=== PATIENT | male | born 1975 | race Caucasian/White ===

== ENCOUNTER 2017-06-24 20:31 | Emergency (ER) | payer OTHER ==
[2017-06-24 21:02] VITALS: BP 135/74; PULSE 66; TEMP 98; BMI 33.0
--- NOTE | 2017-06-24 21:04 | PDOC ---
Rapid Medical Evaluation Time Seen by Provider: 06/24/17 20:55 Medical Evaluation: Allergies Allergy/AdvReac Type Severity Reaction Status Date / Time No Known Allergies Allergy Verified 12/18/14 11:16 06/24/17 20:56 I have performed a brief in-person person evaluation of the patient. The patient presents with a chief complaint of sorethroat x this am. Reports difficulty swallowing since this am states it became worse throughout the day. Also reports headache and malaise. Pertinent physical exam findings: NAD HEENT: + enlarged tonsils, + exudate, multiple caries, and poor dentition unlabored breathing lungs clear bilateral heart s1s2 I have ordered the following: rapid strep sent The patient will proceed to the ED for further evaluation.
--- NOTE | 2017-06-24 21:39 | PDOC ---
History of Present Illness - General Chief Complaint: Sore Throat Stated Complaint: PAIN Time Seen by Provider: 06/24/17 20:55 History Source: Patient Exam Limitations: No Limitations - History of Present Illness Initial Comments: 06/24/17 22:21 Best Contact: Pmhx: N/A Pshx: N/A Allergies: NKDA 42-year-old male presents to the emergency department complaining of right- sided sore throat since yesterday afternoon. Patient denies fever, chills, nausea/vomiting, facial pain, nasal congestion, rhinorrhea, earaches, cough, chest pain, shortness of breath, abdominal pains. Patient denies taking any medication for pain. Past History - Past Medical History Allergies/Adverse Reactions: Allergies Allergy/AdvReac Type Severity Reaction Status Date / Time No Known Allergies Allergy Verified 06/24/17 20:59 Home Medications: Ambulatory Orders Amoxicillin - [Amoxicillin 500mg Capsule -] 500 mg PO BID #20 capsule 06/24/17 COPD: No Other medical history: Pt denies - Suicide/Smoking/Psychosocial Hx Smoking History: Current every day smoker Have you smoked in the past 12 months: Yes Number of Cigarettes Smoked Daily: 10 Information on smoking cessation initiated: No Hx Alcohol Use: No Drug/Substance Use Hx: No Substance Use Type: None Review of Systems - Review of Systems Able to Perform ROS?: Yes Comments:: 06/24/17 22:16 CONSTITUTIONAL: Absent: fever, chills, diaphoresis, generalized weakness, malaise, loss of appetite HEENT: +throat pain Absent: rhinorrhea, nasal congestion, throat swelling, difficulty swallowing, mouth swelling, ear pain, eye pain, visual Changes CARDIOVASCULAR: Absent: chest pain, loss of consciousness, palpitations, irregular heart rate, peripheral edema RESPIRATORY: Absent: cough, shortness of breath, dyspnea with exertion, orthopnea, wheezing, stridor, hemoptysis GASTROINTESTINAL: Absent: abdominal pain, abdominal distension, nausea, vomiting, diarrhea, constipation, melena, hematochezia GENITOURINARY: Absent: dysuria, frequency, urgency, hesitancy, hematuria, flank pain, genital pain MUSCULOSKELETAL: Absent: myalgia, arthralgia, joint swelling SKIN: Absent: rash, itching, pallor Is the patient limited [place] proficient: No *Physical Exam - Vital Signs Last Vital Signs Temp Pulse Resp BP Pulse Ox 98.0 F 66 18 135/74 99 06/24/17 21:00 06/24/17 21:00 06/24/17 21:00 06/24/17 21:00 06/24/17 21:00 - Physical Exam Comments: 06/24/17 22:16 GENERAL: Well developed, well nourished. Awake and alert. No acute distress. HEENT: Right tonsil/+erythematous/swelling/exudate Normocephalic, atraumatic. PERRLA, EOMI. No conjunctival pallor. Sclera are non- icteric. Moist mucous membranes. NECK: Supple. Full ROM. No JVD. Carotid pulses 2+ and symmetric, without bruits. No thyromegaly. No lymphadenopathy. CARDIOVASCULAR: Regular rate and rhythm. No murmurs, rubs, or gallops. Distal pulses are 2+ and symmetric. PULMONARY: No evidence of respiratory distress. Lungs clear to auscultation bilaterally. No wheezing, rales or rhonchi. ABDOMINAL: Soft. Non-tender. Non-distended. No rebound or guarding. No organomegaly. Normoactive bowel sounds. MUSCULOSKELETAL Normal range of motion at all joints. No bony deformities or tenderness. No CVA tenderness. EXTREMITIES: No cyanosis. No clubbing. No edema. No calf tenderness. SKIN: Warm and dry. Normal capillary refill. No rashes. No jaundice. *DC/Admit/Observation/Transfer Diagnosis at time of Disposition: Pharyngitis Qualifiers: Pharyngitis/tonsillitis etiology: unspecified etiology Qualified Code(s): J02.9 - Acute pharyngitis, unspecified - Discharge Dispostion Condition at time of disposition: Stable Admit: No - Prescriptions Prescriptions: Amoxicillin - [Amoxicillin 500mg Capsule -] 500 mg PO BID #20 capsule - Referrals Referrals: Kami Jones [Primary Care Provider] - - Patient Instructions Printed Discharge Instructions: DI for Viral Pharyngitis Additional Instructions: Increase fluids Tylenol alternating with Motrin as needed for pain/fever Antibiotics as prescribed Your strep throat test was negative but due to your symptoms and exam, you will be treated with antibiotics Return to the ER for severe/persistent/worsening symptoms. - Post Discharge Activity
[2017-06-24] MEDS ORDERED: IBUPROFEN 400 MG TABLET (FP) PO ONE ×2 (21:42→21:45)
[2017-06-24] MEDS ORDERED: AMOXICILLIN 500 MG CAPSULE (FP) PO ONE (22:22)
[2017-06-24] MEDS ORDERED: AMOXICILLIN 250 MG CAPSULE ONE (22:26)
== END 2017-06-24 22:30 | disposition home or self-care (01) ==
LOC: JERFT 20:31
DX: J02.9 Acute pharyngitis, unspecified (principal); F17.210 Nicotine dependence, cigarettes, uncomplicated
CPT/HCPCS: 87070; 87430; 99281-25

== ENCOUNTER 2018-11-08 13:18 | Emergency (ER) | payer OTHER ==
[2018-11-08 13:34] VITALS: BP 115/71; PULSE 65; TEMP 97; BMI 34.2
[2018-11-08] MEDS ORDERED: IBUPROFEN 400 MG TABLET (FP) PO ONE ×2 (13:41→13:44)
--- NOTE | 2018-11-08 13:49 | PDOC ---
History of Present Illness - General Chief Complaint: Toothache Stated Complaint: TOOTH ACHE Time Seen by Provider: 11/08/18 13:38 History Source: Patient Exam Limitations: No Limitations (toothache X 2 days) - History of Present Illness Associated Symptoms: denies: chest pain, cough, fever/chills, shortness of breath, weakness Past History - Travel Traveled outside of the country in the last 30 days: No - Past Medical History Allergies/Adverse Reactions: Allergies Allergy/AdvReac Type Severity Reaction Status Date / Time No Known Allergies Allergy Verified 11/08/18 13:34 Home Medications: Ambulatory Orders Amoxicillin - [Amoxicillin 500mg Capsule -] 500 mg PO BID #20 capsule 06/24/17 Chlorhexidine Gluconate [Peridex -] 15 ml MM BID 5 Days #90 ml 11/08/18 Ibuprofen 800 mg PO ACDIN 7 Days #21 tablet 11/08/18 COPD: No - Suicide/Smoking/Psychosocial Hx Smoking History: Current every day smoker Have you smoked in the past 12 months: Yes Number of Cigarettes Smoked Daily: 10 Information on smoking cessation initiated: No Hx Alcohol Use: No Drug/Substance Use Hx: No Substance Use Type: None Review of Systems - Review of Systems Constitutional: No: Chills, Fever HEENTM: Yes: Dental Problems. No: Nose Bleeding, Throat Pain, Throat Swelling, Difficulty Swallowing Respiratory: No: Shortness of Breath Cardiac (ROS): No: Chest Pain Neurological: No: Headache, Numbness, Paresthesia, Tingling, Tremors, Weakness, Unsteady Gait, Ataxia, Dizziness *Physical Exam - Vital Signs Last Vital Signs Temp Pulse Resp BP Pulse Ox 97 F L 65 18 115/71 99 11/08/18 13:31 11/08/18 13:31 11/08/18 13:31 11/08/18 13:31 11/08/18 13:31 - Physical Exam General Appearance: Yes: Nourished HEENT: positive: EOMI, POORNIMA, Other (+ gum swelling to molar region, + mulitple caries tooth, no abscess noted) Neck: positive: Supple Respiratory/Chest: positive: Lungs Clear, Normal Breath Sounds Cardiovascular: positive: Regular Rhythm, Regular Rate, S1, S2 Integumentary: positive: Normal Color Neurologic: positive: safety and occupational health manager II-XII NML intact, Fully Oriented, Alert, Normal Mood/ Affect, Normal Response, Motor Strength 5/5 Medical Decision Making - Medical Decision Making 11/08/18 14:48 43y/o M with dental pain X 2 days denies fever, chills Exam consistent with dental caries pain control dental follow up recommended *DC/Admit/Observation/Transfer Diagnosis at time of Disposition: Dental caries - Discharge Dispostion Disposition: HOME Condition at time of disposition: Stable Decision to Admit order: No - Prescriptions Prescriptions: Chlorhexidine Gluconate [Peridex -] 15 ml MM BID 5 Days #90 ml Ibuprofen 800 mg PO ACDIN 7 Days #21 tablet - Referrals Referrals: Kami Jones [Primary Care Provider] - - Patient Instructions Printed Discharge Instructions: DI for Dental Pain Additional Instructions: Rest, drink lots of fluids: Teas, water, soups Saltwater gargles/ keep mouth clean and rinse after each meal May use wet teabag for pain relief to area Avoid hard chewing foods, stick to ice cream, Jell-O, yogurt etc. Tylenol or Motrin for fever and pain Complete all medication as prescribed Call [facility], [place] at [phone] or call [facility] at [phone] Followup with private physician in one to 2 days as needed Return to emergency department for worsened symptoms, fevers, swelling to face or worsened pain - Post Discharge Activity
== END 2018-11-08 14:11 | disposition home or self-care (01) ==
LOC: JERFT 13:18
DX: K02.9 Dental caries, unspecified (principal)
CPT/HCPCS: 99281-25

== ENCOUNTER 2018-11-20 13:13 | Emergency (ER) | payer OTHER ==
[2018-11-20 13:19] VITALS: BP 125/75; PULSE 60; TEMP 98.8; BMI 34.2
--- NOTE | 2018-11-20 13:27 | PDOC ---
History of Present Illness - General Chief Complaint: Pain, Acute Stated Complaint: ABD. PAIN Time Seen by Provider: 11/20/18 13:26 History Source: Patient Exam Limitations: No Limitations - History of Present Illness Initial Comments: 11/20/18 13:40 CHIEF COMPLAINT: Abdominal pain HISTORY OF PRESENT ILLNESS: This is an otherwise healthy 43-year-old male referred by his PCP for evaluation of left-sided abdominal pain. Pain began this morning when patient woke up. He had 1 episode of loose stool. He has been nauseated. He reports that he has had some dysuria/urinary hesitancy. He denies fevers/chills. He has had constant left lower quadrant abdominal pain radiating to the left flank since that time. He denies recent travel, known sick contacts , and eating in restaurants recently. Vital signs on arrival are all within normal limits. REVIEW OF SYSTEMS: GENERAL/CONSTITUTIONAL: No fever or chills. No weakness. No weight change. HEAD, EYES, EARS, NOSE AND THROAT: No change in vision. No ear pain or discharge. No sore throat. CARDIOVASCULAR: No chest pain or palpitations. RESPIRATORY: No cough, wheezing, or shortness of breath. GASTROINTESTINAL: LLQ pain, nausea, loose stool. GENITOURINARY: Dysuria/hesitancy. Left flank pain. MUSCULOSKELETAL: No joint or muscle swelling or pain. No neck or back pain. SKIN: No rash or easy bruising. NEUROLOGIC: No headache, vertigo, loss of consciousness, or loss of sensation. PSYCHIATRIC: No depression or anxiety. ENDOCRINE: No increased thirst. No abnormal weight change. HEMATOLOGIC/LYMPHATIC: No anemia, easy bleeding, or history of blood clots. ALLERGIC/IMMUNOLOGIC: No hives or skin allergy. No latex allergy. PHYSICAL EXAM: GENERAL: The patient is awake, alert, and fully oriented, in no acute distress. HEAD: Normal with no signs of trauma. ENT: Pupils equal, round and reactive to light, extraocular movements intact, sclera anicteric, conjunctiva clear. Neck supple. LUNGS: Clear to auscultation bilaterally. Normal excursion. No respiratory distress or use of accessory muscles. CV: RRR, S1/S2, no MRG. Cap refill < 2 sec. ABDOMEN: Soft, non-distended, tender to palpation in left lower quadrant and left CVA. EXTREMITIES: Normal range of motion, no edema. NEUROLOGICAL: Normal speech, normal gait. CN II-XII grossly intact. PSYCH: Normal mood, normal affect. SKIN: Warm, dry, normal turgor, no rashes or lesions noted. Past History - Past Medical History Allergies/Adverse Reactions: Allergies Allergy/AdvReac Type Severity Reaction Status Date / Time No Known Allergies Allergy Verified 11/20/18 13:14 Home Medications: Ambulatory Orders NK [No Known Home Medication] 11/20/18 COPD: No Diabetes: Yes - Immunization History Immunization Up to Date: No - Suicide/Smoking/Psychosocial Hx Smoking History: Never smoked Have you smoked in the past 12 months: Yes Number of Cigarettes Smoked Daily: 10 Hx Alcohol Use: No Drug/Substance Use Hx: No Substance Use Type: None *Physical Exam - Vital Signs Last Vital Signs Temp Pulse Resp BP Pulse Ox 98.8 F 60 18 125/75 98 11/20/18 13:15 11/20/18 13:15 11/20/18 13:15 11/20/18 13:15 11/20/18 13:15 ED Treatment Course - LABORATORY CBC & Chemistry Diagram: 11/20/18 13:50 11/20/18 13:50 Medical Decision Making - Medical Decision Making 11/20/18 13:43 A/P: 43-year-old male with left lower quadrant/left flank pain with some loose stools and urinary symptoms. Differential includes but is not limited to: Renal colic, UTI/pyelonephritis, diverticulitis. 1. Labs including CBC, CMP, UA/culture 2. CTAP non-contrast 3. Morphine 4mg for pain 4. Re-assess 11/20/18 15:08 CT demonstrates left UVJ calculus 3-4 mm with mild hydronephrosis. Counseled patient to follow up with urology. Will prescribe analgesia, Flomax. Follow-up instructions and return precautions reviewed. *DC/Admit/Observation/Transfer Diagnosis at time of Disposition: Kidney stone on left side - Discharge Dispostion Disposition: HOME Condition at time of disposition: Improved Decision to Admit order: No - Referrals Referrals: Kami Jones [Primary Care Provider] - Gilmar Diaz MD [Staff Physician] - Call tomorrow (UROLOGY) - Patient Instructions Printed Discharge Instructions: DI for Kidney Stones Additional Instructions: -Take ibuprofen and Flomax as prescribed and Perocet if needed for severe pain -Make an appointment with the urologist (contact information enclosed) -Return here for severe/uncontrolled pain, fever, or any other concerning symptoms - Post Discharge Activity Forms/Work/School Notes: Back to Work
[2018-11-20] MEDS ORDERED: SODIUM CHLORIDE 1,000 ML IV STA (13:33)
[2018-11-20] MEDS ORDERED: morphine CARPU-JECT 4 MG/1 ML DISP.SYRIN IVPUSH ONE (13:37)
[2018-11-20 14:01] LABS: BASO % 0.7 % (0-2.0); EOS % 0.3 % (0-4.5); HEMATOCRIT 42.6 % (35.4-49); HEMOGLOBIN 14.4 GM/dL (11.7-16.9); LYMPH % 16.7 % (8-40); MCHC 33.8 g/dl (32.0-35.9); MEAN CELL VOLUME 91.8 fl (80-96); MEAN PLT VOLUME 7.7 fl (7.5-11.1); MONO % 6.9 % (3.8-10.2); NEUT % 75.4 % (42.8-82.8); PLATELET COUNT 273 K/MM3 (134-434); RBC 4.64 M/mm3 (4.00-5.60); RDW 14.1 % (11.9-15.9); WHITE BLOOD COUNT 8.8 K/mm3 (4.0-10.0)
[2018-11-20] MEDS ORDERED: morphine SULFATE 4 MG/ML VIAL ONE (14:01)
[2018-11-20 14:14] LABS: EPI CELLS 0.2 /HPF (0-5/HPF); HYALINE CASTS 0 /lpf (0-8); URINE APPEARANCE CLEAR; URINE BACTERIA 0.3 /hpf (NEGATIVE); URINE BILIRUBIN NEGATIVE (NEGATIVE); URINE COLOR YELLOW; URINE GLUCOSE (UA) NEGATIVE (NEGATIVE); URINE KETONE NEGATIVE (NEGATIVE); URINE LEUK ESTERASE NEGATIVE (NEGATIVE); URINE NITRITE NEGATIVE (NEGATIVE); URINE PROTEIN NEGATIVE (NEGATIVE); URINE RBC 5 /hpf (0-4); URINE UROBILINOGEN 0.2 mg/dL (0.2-1.0); URINE WBC 1 /hpf (0-5)
[2018-11-20 14:36] LABS: ALBUMIN 3.8 g/dl (3.4-5.0); BILIRUBIN,TOTAL 0.2 mg/dL (0.2-1); BLOOD UREA NITROGEN 15.4 mg/dL (7-18); CALCIUM 9.2 mg/dL (8.5-10.1); CREATININE 1.3 mg/dL (0.55-1.3); POTASSIUM 4.5 mmol/L (3.5-5.1); TOT PROT 7.5 g/dl (6.4-8.2)
[2018-11-20] MEDS ORDERED: ONDANSETRON 4 MG/2 ML VIAL IVPUSH ONE (14:42)
[2018-11-20] MEDS ORDERED: ONDANSETRON 4 MG/2 ML VIAL ONE (15:01)
[2018-11-20] MEDS ORDERED: IBUPROFEN 600 MG TABLET (FP) PO ONE ×2 (15:13→15:20)
[2018-11-20] MEDS ORDERED: TAMSULOSIN HCL 0.4 MG CAP PO ONE (15:13)
[2018-11-20] MEDS ORDERED: TAMSULOSIN HCL 0.4 MG CAP ONE (15:20)
== END 2018-11-20 16:00 | disposition home or self-care (01) ==
LOC: JER 13:13
PROC: 3E0337Z Introduction of Electrolytic and Water Balance Substance into Peripheral Vein, Percutaneous Approach (ICD-10-PCS; principal; 2018-11-20)
PROC: 3E033NZ Introduction of Analgesics, Hypnotics, Sedatives into Peripheral Vein, Percutaneous Approach (ICD-10-PCS; 2018-11-20)
PROC: 3E033GC Introduction of Other Therapeutic Substance into Peripheral Vein, Percutaneous Approach (ICD-10-PCS; 2018-11-20)
DX: N13.2 Hydronephrosis with renal and ureteral calculous obstruction (principal)
CPT/HCPCS: 36415; 74176-TC; 80053; 81003; 83690; 85025; 87086; 99283-25; J7030

== ENCOUNTER 2024-05-19 11:09 | Emergency (ER) | payer OTHER ==
[2024-05-19 11:22] VITALS: BP 113/67; PULSE 75; RESP 20; TEMP 100.6; BMI 33.0
[2024-05-19 13:25] LABS: HIV INTERPRETATION NEGATIVE (NEGATIVE)
[2024-05-19] MEDS ORDERED: IBUPROFEN 600 MG TABLET (FP) PO ONE (13:56)
[2024-05-19] MEDS ORDERED: ACETAMINOPHEN 500 MG TABLET (FP) ONE (13:56)
[2024-05-19] MEDS: IBUPROFEN 600 MG TABLET (FP) PO ONE (14:01)
[2024-05-19] MEDS: ACETAMINOPHEN 500 MG TABLET (FP) PO ONE (14:01)
== END 2024-05-19 14:02 | disposition home or self-care (01) ==
LOC: JERFT 11:09
DX: J10.1 Influenza due to other identified influenza virus with other respiratory manifestations (principal); J06.9 Acute upper respiratory infection, unspecified; R09.81 Nasal congestion; R05.9 Cough, unspecified; R53.83 Other fatigue; Z20.822 Contact with and (suspected) exposure to COVID-19
CPT/HCPCS: 0241U-QW; 36415; 86803; 87389; 93005; 93010; 99284-25